=== PATIENT | female | born 1985 ===

== ENCOUNTER 2018-01-21 06:52 | Inpatient (IN) | payer BC ==
[2018-01-21] MEDS ORDERED: Lidocaine 1% 50 ML MDV INJECT PRN (07:59)
[2018-01-21] MEDS ORDERED: Nalbuphine 20 MG/ML 1 ML Syringe IVPUSH PRN (07:59)
[2018-01-21] MEDS ORDERED: Sodium Chloride 0.9% 10 ML Syringe FLUSH PRN (07:59)
[2018-01-21] MEDS ORDERED: Oxytocin/Lactated Ringers 10 UNIT/1,000 ML BAG IV SCH ×2 (08:00)
[2018-01-21] MEDS: Lactated Ringers 1,000 ML IV SCH ×3 (08:18→19:21)
--- NOTE | 2018-01-21 09:05 | PCM.LDHP ---
L&D History of Present Illness - General Date of Service: 01/21/18 Admit Problem/Dx: Patient Status Order with Admit Dx/Problem 01/21/18 07:59 Patient Status [ADT] Routine Admission Diagnosis/Problem Admission Diagnosis/Problem 01/21/18 08:50 39-4/7 week intrauterine , elective induction of labor Source of Information: Patient History Limitations: Reports: No Limitations - History of Present Illness Introduction:: History of present illness: Deb Is a 32-year-old 3 para 2001 female who is admitted for elective induction of labor. REJI is 01/24/2018. Patient's cervix is time is 2+ centimeters, 80% effaced, -2 station, posterior. Induction of labor as been discussed with patient including procedure, risks, benefits, alternatives of care. She wishes to proceed. [employer] history 3 para 2001. REJI 01/24/2018 based upon a certain last menstrual start and 04/19/2017 supported by 2 ultrasounds done on 06/24/2017 at . Patient had menarche at age, cycles every 35 days. No control at conception. Previous deliveries include the followin. Male infant born 05/11/2013 at 40 weeks gestational age of 24 hours labor. 8 lbs. 10 oz. male infant delivered via vacuum extraction delivery. Child's name is Nahun 2. Male 11/07/2014 at 40-2/7 weeks gestational age after 12 hours labor. 8 lbs. 14 oz. delivered spontaneously. Child's name is Waylon Peter course was relatively unremarkable. Her 1 hour GTT was elevated but 3 or GTT was normal. She plans to breast-feed. She declined genetic testing. She desires epidural in labor. Her [place] depression screening score on 09/19/2017 was 2. Group B strep screen is negative. Chest history of preeclampsia with her first . She also has a history of gestational diabetes. She is Rh- and received RhoGAM second trimester. She had her T dap on 11/14/2017. Patient is seen for first visit on 06/24/2017 at 9-3/7 weeks. She was seen on a regular basis. Weight gain was from 162.2 pounds 203 pounds for a 41 pound weight gain. Vital signs stable throughout the course. Fundal height growth. laboratory testing shows blood to be A- with negative screen. Initial first hemoglobin is 14.1 and platelets 209,000. Her showed ASCUS changes but negative age high-risk HPV assay. An RPR assays were immune and nonreactive. Hepatitis B and HIV assays were negative. Chlamydia and gonorrhea tests were negative. Second trimester labs showed hemoglobin 12.0 g or deciliter and platelets of 170,000 screening test was 155 for throughout GTT was normal with fasting blood level of 81. Her 1 hour glucose was 183, 2 hours 155, 3 hour glucose was 82. Allergies none Medications: 1. vitamins 1 daily 2. Vitamin D3 3000 units daily 3. Iron the form of ferrous sulfate 325 mg per day 3. Vitamin C Past medical history: 1. Vaginal delivery 2 2. History of gestational diabetes 3. Anxiety 4. History of ASCUS changes on Pap with negative high risk HPV Past surgical history: 1. Tonsillectomy Family history mother is alive and well. One sister and 1 brother alive and well. Father is alive but has hypertension and adult-onset diabetes along with hypercholesterolemia. Paternal grandfather secondary to an MA at age 72. Paternal grandmother is secondary to an MA which occurred during the surgical procedure but also had adult onset diabetes and hypertension. Maternal grandmother is secondary to colon cancer but also had adult- onset diabetes. Maternal grandfather is alive and healthy. No anesthesia, bleeding, blood clotting or problems noted. Social history: Patient is . is Ken Veronica. She is not using any significant loss of alcohol, drugs or tobacco. 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 Review of systems: In general patient has no concerns. She is feeling good activity and no contractions. She denies any bleeding or loss of vaginal fluid Skin: Negative Cardiovascular: No chest pain or exercise intolerance. Lungs: No shortness of breath or infectious symptoms Breasts: Changes associated with only. Patient does plan to breast- feed. GI: Negative : Essentially negative. Specifically no contractions of significance. Extremities/musculoskeletal: Occasional edema noted. Neurological: Negative Physical exam: In general patient is well-developed, well-nourished, pleasant feels stated age in no acute distress. She is alert 903 and appears to be good historian. On last evaluation clinic patient's weight was 203 with her pregravid weight 162.2 pounds. Her blood pressure was 118/74. heart rate is 147. Her pregravid weight was 162.2. Height is 5 feet 6 inches. Pregravid body mass index was 25. Skin is warm dry without lesions. HEENT, neck and back within normal notes Lungs are clear with good breath sounds in all lung chen. Cardiovascular exam shows regular and rhythm without murmurs. Breast exam is deferred. Abdomen is protuberant with last fundal height clinic at 38 cm, baby in vertex presentation by the pulmonary. Extremities and neurological Exam within normal limits. - Related Data Allergies/Adverse Reactions: Allergies Allergy/AdvReac Type Severity Reaction Status Date / Time No Known Allergies Allergy Verified 11/06/14 14:45 Home Medications: Home Meds Vit with Ca/FA/Iron [ Plus Iron] 1 each PO DAILY tablet [Rx] H&P Review of Systems - Review of Systems: Review Of Systems: See Below L&D Exam - Exam Exam: See Below - Vital Signs Vital Signs: Last Vital Signs Temp Pulse 112 H 01/21/18 08:00 Resp BP Pulse Ox Weight: 91.626 kg - Patient Data Lab Results Last 24 hrs: Laboratory Results - last 24 hr 01/21/18 Range/Units 08:14 WBC 9.99 (3.98-10.04) K/mm3 RBC 4.08 (3.98-5.22) M/mm3 Hgb 12.9 (11.2-15.7) gm/L Hct 37.2 (34.1-44.9) % MCV 91.2 (79.4-94.8) fl MCH 31.6 (25.6-32.2) pg MCHC 34.7 (32.2-35.5) g/dl RDW Std Deviation 46.1 (36.4-46.3) fL Plt Count 159 L (182-369) K/mm3 MPV 8.5 L (9.4-12.3) fl Result Diagrams: 01/21/18 08:14 Problem List Initiated/Reviewed/Updated: Yes Orders Last 24hrs: Active Orders 24 hr Category Date Time Status Patient Status [ADT] Routine ADT 01/21/18 07:59 Active Activity as Tolerated [RC] PFP Care 01/21/18 07:59 Active Communication Order [RC] ASDIRECTED Care 01/21/18 07:59 Active Notify Provider [RC] PFP Care 01/21/18 07:59 Active Notify Provider [RC] PRN Care 01/21/18 07:59 Active Peripheral IV Care [RC] Q2HR Care 01/21/18 08:00 Active Vital Signs [RC] PER UNIT ROUTINE Care 01/21/18 07:59 Active Regular Diet [DIET] Diet 01/21/18 Breakfast Active Lactated Ringers [Ringers, Lactated] 1,000 ml Med 01/21/18 08:00 Active IV ASDIRECTED Lidocaine 1% [Xylocaine 1%] Med 01/21/18 07:59 Active 50 ml INJECT ASDIRECTED PRN Nalbuphine [Nubain] Med 01/21/18 07:59 Active 10 mg IVPUSH Q2H PRN Oxytocin/Lactated Ringers [Pitocin in LR 10 Units/1,000 Med 01/21/18 08:00 Active ML] 10 unit in 1,000 ml IV .CONTINUOUS Oxytocin/Lactated Ringers [Pitocin in LR 10 Units/1,000 Med 01/21/18 08:00 Active ML] 10 unit in 1,000 ml IV TITRATE Sodium Chloride 0.9% [Saline Flush] Med 01/21/18 07:59 Active 10 ml FLUSH ASDIRECTED PRN Electronic Heart Tones Ext w TOCO [WOMSER] Oth 01/21/18 07:59 Ordered Routine Electronic Heart Tones Internal [WOMSER] Per Unit Oth 01/21/18 07:59 Ordered Routine Peripheral IV Insertion Adult [OM.PC] Routine Oth 01/21/18 07:59 Ordered Resuscitation Status Routine Resus Stat 01/21/18 07:59 Ordered Medication Orders Lactated Ringer's (Ringers, Lactated) 1,000 mls @ 100 mls/hr IV ASDIRECTED KARLA Last Admin: 01/21/18 08:18 Dose: 100 mls/hr Oxytocin/Lactated Ringer's (Pitocin In Lr 10 Units/1,000 Ml) 10 unit in 1,000 mls @ 12 mls/hr IV TITRATE KARLA; Protocol Last Admin: 01/21/18 08:19 Dose: 2 munits/min, 12 mls/hr Oxytocin/Lactated Ringer's (Pitocin In Lr 10 Units/1,000 Ml) 10 unit in 1,000 mls @ 500 mls/hr IV .CONTINUOUS KARLA Lidocaine HCl (Xylocaine 1%) 50 ml INJECT ASDIRECTED PRN PRN Reason: Breakthrough Pain Nalbuphine HCl (Nubain) 10 mg IVPUSH Q2H PRN PRN Reason: pain Sodium Chloride (Saline Flush) 10 ml FLUSH ASDIRECTED PRN PRN Reason: Keep Vein Open Assessment/Plan Comment:: 1. 39-4/7 week intrauterine , elective induction of labor 2.Group B strep screen negative 3. Patient plans to do an epidural for labor analgesia 4. Patient plans to breast-feed 5. Rubella immune. 6. Negativepatient did receive RhoGAM during her course. Plan: 1. Elective induction of labor using Pitocin initially with artificial rupture membranes augmentation planned. 2. Epidural when necessary for analgesia 3. Routine care.
[2018-01-21] MEDS ORDERED: diphenhydrAMINE 50 MG/ML SDV IVPUSH PRN (09:28)
[2018-01-21] MEDS ORDERED: fentaNYL 100 MCG/2 ML SDV EPIDUR PRN (09:28)
[2018-01-21] MEDS ORDERED: ePHEDrine 50 MG/ML SDV IVPUSH PRN (09:28)
[2018-01-21] MEDS ORDERED: Bupivacaine/fentaNYL/NS 100 ML Bag EPIDUR SCH (09:30)
--- NOTE | 2018-01-21 09:32 | PCM.PREANE ---
Preanesthetic Assessment - Procedure Proposed Procedure: anaid - Anesthesia/Transfusion/Family Hx Anesthesia History: Prior Anesthesia Without Reaction Family History of Anesthesia Reaction: No Transfusion History: No Prior Transfusion(s) - Review of Systems General: No Symptoms Pulmonary: No Symptoms Cardiovascular: No Symptoms Gastrointestinal: No Symptoms Neurological: No Symptoms Other: Reports: None - Physical Assessment Pulse: 112 Vital Signs: Last Vital Signs Temp Pulse 112 H 01/21/18 08:00 Resp BP Pulse Ox Height: 5 ft 6 in Weight: 91.626 kg ASA Class: 2 Mental Status: Alert & Oriented x3 Airway Class: Mallampati = 1 Dentition: Reports: Normal Dentition Thyro-Mental Finger Breadths: 3 Mouth Opening Finger Breadths: 3 ROM/Head Extension: Full Lungs: Clear to Auscultation, Normal Respiratory Effort Cardiovascular: Regular Rate, Regular Rhythm - Lab Values: Laboratory Last Values WBC 9.99 K/mm3 (3.98-10.04) 01/21/18 08:14 RBC 4.08 M/mm3 (3.98-5.22) 01/21/18 08:14 Hgb 12.9 gm/L (11.2-15.7) 01/21/18 08:14 Hct 37.2 % (34.1-44.9) 01/21/18 08:14 MCV 91.2 fl (79.4-94.8) 01/21/18 08:14 MCH 31.6 pg (25.6-32.2) 01/21/18 08:14 MCHC 34.7 g/dl (32.2-35.5) 01/21/18 08:14 RDW Std Deviation 46.1 fL (36.4-46.3) 01/21/18 08:14 Plt Count 159 K/mm3 (182-369) L 01/21/18 08:14 MPV 8.5 fl (9.4-12.3) L 01/21/18 08:14 - Allergies Allergies/Adverse Reactions: Allergies Allergy/AdvReac Type Severity Reaction Status Date / Time No Known Allergies Allergy Verified 11/06/14 14:45 - Blood Blood Available: No - Acknowledgements Anesthesia Type Planned: Epidural Pt an Appropriate Candidate for the Planned Anesthesia: Yes Alternatives and Risks of Anesthesia Discussed w Pt/Guardian: Yes Pt/Guardian Understands and Agrees with Anesthesia Plan: Yes PreAnesthesia Questionnaire HEENT History: Reports: None Cardiovascular History: Reports: None Respiratory History: Reports: None Gastrointestinal History: Reports: None : 3 (39 +weeks) Para: 2 Musculoskeletal History: Reports: None Psychiatric History: Reports: None Endocrine/Metabolic History: Reports: None Oncologic (Cancer) History: Reports: None - Past Surgical History HEENT Surgical History: Reports: Adenoidectomy, Tonsillectomy - SUBSTANCE USE Smoking Status *Q: Never Smoker Tobacco Use Within Last Twelve Months: No Second Hand Smoke Exposure: No Days Per Week of Alcohol Use: 0 Recreational Drug Use History: No - HOME MEDS Home Medications: Home Meds Vit with Ca/FA/Iron [ Plus Iron] 1 each PO DAILY tablet [Rx] - CURRENT (IN HOUSE) MEDS Current Meds: Current Medications Lactated Ringer's (Ringers, Lactated) 1,000 mls @ 100 mls/hr IV ASDIRECTED KARLA Last Admin: 01/21/18 08:18 Dose: 100 mls/hr Oxytocin/Lactated Ringer's (Pitocin In Lr 10 Units/1,000 Ml) 10 unit in 1,000 mls @ 12 mls/hr IV TITRATE KARLA; Protocol Last Titration: 01/21/18 09:05 Dose: 4 munits/min, 24 mls/hr Oxytocin/Lactated Ringer's (Pitocin In Lr 10 Units/1,000 Ml) 10 unit in 1,000 mls @ 500 mls/hr IV .CONTINUOUS KARLA Lidocaine HCl (Xylocaine 1%) 50 ml INJECT ASDIRECTED PRN PRN Reason: Breakthrough Pain Nalbuphine HCl (Nubain) 10 mg IVPUSH Q2H PRN PRN Reason: pain Sodium Chloride (Saline Flush) 10 ml FLUSH ASDIRECTED PRN PRN Reason: Keep Vein Open
--- NOTE | 2018-01-21 18:49 | PCM.SN ---
- Free Text/Narrative Note: Deb is a 32-year-old 3 now para 3003 white female who is admitted for elective induction of labor at 39-4/7 weeks gestational age. She underwent Pitocin induction with artificial rupture membranes augmentation starting on the a.m. of 01/21/2018. She progressed steadily. She had an epidural for labor analgesia. She became complete at approximately 1800 hrs. and pushed with approximatel 5 contractions and delivered a viable, [place], female with Apgars of 8 and 9, a length of 20.5 inches, a weight of 3650 g (8 pounds 0.7 ounces) in an occiput anterior position. The baby is delivered at 1822 hrs. Baby was placed on mom's abdomen. The cord was clamped 2 and then was cut by the baby's father Ken. Cord blood was obtained. Patient had a second-degree laceration which was repaired using 3-0 Monocryl suture in a routine fashion using epidural as anesthetic. Pitocin was administered per IV immediately after the delivery of the baby. Patient had 2 short bursts of bleeding each about 100 mL. Uterus massage helped reduce the bleeding by increase in uterine tone. The placenta delivered spontaneously at 1830 hrs., intact appearing complete. It was discarded per patient desire. Estimated blood loss 200 mL. Condition: Good. Patient plans to breast-feed.
[2018-01-21] MEDS ORDERED: Methylergonovine 0.2 MG/1 ML Amp ONE ×2 (19:00→19:05)
[2018-01-21] MEDS ORDERED: Methylergonovine 0.2 MG/1 ML Amp IM ONE (19:01)
[2018-01-21] MEDS ORDERED: Propofol 200 MG/20 ML SDV ONE (19:26)
[2018-01-21] MEDS ORDERED: Ondansetron 4 MG/2 ML SDV ONE (19:26)
[2018-01-21] MEDS ORDERED: Midazolam 1 MG/ML 2 ML SDV ONE ×2 (19:26→20:25)
[2018-01-21] MEDS ORDERED: Lidocaine 1% 4 ML ONE (19:26)
[2018-01-21] MEDS ORDERED: fentaNYL 250 MCG/5 ML SDV ONE (19:27)
[2018-01-21] MEDS ORDERED: Succinylcholine/Normal Saline 100 MG/5 ML Syringe ONE (19:27)
[2018-01-21] MEDS ORDERED: Ketamine 500 mg/10 ML MDV ONE (19:34)
[2018-01-21] MEDS ORDERED: ceFAZolin 1 GM Vial ONE (19:40)
[2018-01-21] MEDS ORDERED: Ondansetron 4 MG/2 ML SDV IVPUSH PRN (19:49)
[2018-01-21] MEDS ORDERED: Meperidine PF 50 MG/ML Syringe IVPUSH PRN (19:49)
[2018-01-21] MEDS ORDERED: fentaNYL 100 MCG/2 ML SDV IVPUSH PRN (19:49)
[2018-01-21] MEDS ORDERED: Misoprostol 200 MCG Tab ONE (19:51)
[2018-01-21] MEDS ORDERED: Benzocaine/Menthol 20%-0.5% Spray 56 GM Canister TOP PRN (19:57)
[2018-01-21] MEDS ORDERED: Witch Hazel Medicated Pads 100/Jar TOP PRN (19:57)
[2018-01-21] MEDS ORDERED: Docusate Sodium 100 MG Cap PO PRN (19:57)
[2018-01-21] MEDS ORDERED: Acetaminophen 325 MG Tab PO PRN (19:57)
[2018-01-21] MEDS ORDERED: Lanolin 100% Cream 7 GM Tube TOP PRN (19:57)
[2018-01-21] MEDS ORDERED: Ibuprofen 600 MG Tab PO PRN (19:57)
[2018-01-21] MEDS ORDERED: Sodium Chloride 0.9% 1,000 ML ONE (20:18)
--- NOTE | 2018-01-21 20:49 | PCM.POSTAN ---
POST ANESTHESIA ASSESSMENT - MENTAL STATUS Mental Status: Alert, Oriented - VITAL SIGNS Pulse Rate: 111 SaO2: 100 Resp Rate: 17 Blood Pressure: 130/68 Temperature: 100.9 F - RESPIRATORY Respiratory Status: Respiratory Rate WNL, Airway Patent, O2 Saturation Stable, Supplemental Oxygen - CARDIOVASCULAR CV Status: Pulse Rate WNL, Blood Pressure Stable - GASTROINTESTINAL GI Status: No Symptoms - PAIN Pain Score: 0 - POST OP HYDRATION Hydration Status: Adequate & Stable
--- NOTE | 2018-01-21 21:00 | PCM.OPNOTE ---
- General Post-Op/Procedure Note Date of Surgery/Procedure: 01/21/18 Operative Procedure(s): 1. Exam under anesthesia. 2. Suction curettage of the endometrial cavity. 3. Placement of Bakri balloon Findings: Uterus was found to be firm. There was a small segment of placenta retained within the endometrial cavity. The cervix appeared to be intact without any evidence of bleeding. Pre Op Diagnosis: 1. hemorrhage. 2. Retained products of conception/ placenta Post-Op Diagnosis: Same Anesthesia Technique: Epidural, Moderate Sedation Primary Surgeon: Milo aBrboza Secondary Surgeon: Jeff Montalvo Anesthesia Provider: Alfredo Tomlinson Reason Administrative Intern Was Necessary: Retraction, assistance, patient safety, quality of care Role of Administrative Intern: Assistance, retraction Pathology: Endometrial curettings consistent with retained placenta Drain/Tube Comments:: Bakri balloon placed in the endometrial cavity Complications: None Condition: Good Free Text/Narrative:: Surgery duration: 47 minutes Preoperative estimated blood loss: 2100 mL Intraoperative blood loss: 800 mL Medications administered in addition to anesthesia include: 1. Cytotec 800 g per rectum 2. IV Pitocin per IV 3. Ancef 2 g IV intraoperatively 4. IM Methergine 0.2 mg given just before patient's transfer to the OR IV fluids: 1. 2100 mL crystalloid 2. First unit of packed red blood cells was initiated during the surgery. Procedure: The patient is taken to the operating room placed in supine position on the operating table. She was given additional sedation in addition to her epidural which was still moderately effective. She is placed in the dorsal lithotomy position and vagina and perineum were prepped. A weighted speculum was placed in vagina taking care to avoid interrupting her second-degree laceration suturing. The cervix was evaluated in full circumference and found to be intact and without any evidence of lacerations or hemorrhage. A large suction curet was then introduced and the endometrial cavity and a small amount of tissue was removed with findings consistent with retained placenta. A large loop curet was then introduced and no further tissue was removed. There was still some moderate amount of bleeding present despite the uterus being reasonably firm. A decision was made to place a Bakri balloon. Normal saline was used as a distending medium. The balloon was placed with the tip at the fundus of the uterus. It was filled to 420 mL.. The end of the Bakri tubing was attached to a closed collection system. With this bleeding essentially subsided. At this point the retractor was removed the laceration sutures weren' t noted to be intact. Patient's returned to supine position and was transferred to the recovery room. Condition-satisfactory
[2018-01-21] MEDS ORDERED: Bupivacaine 0.25% 10 ML SDV ONE (22:00)
--- NOTE | 2018-01-21 22:01 | PCM.SN ---
- Free Text/Narrative Note: Postoperative/ note: I was called at approximately 2130 hrs. for mild continued vaginal bleeding. Patient had approximately a 10 inch size bloodstain on Chux. She has received 2 units of packed blood cells. Platelet count is 139 and a hemoglobin is 11.7. Patient is feeling well. Bakri balloon is in place and appears to be functioning. There is approximately 40 mL of blood that has come out through the balloon tube. PT and PTT along with an INR have been ordered. Patient has received some fentanyl for pain. Appears to be resting reasonably well. Assessment: 1. uterine bleeding with retained placenta now status post suction D& C and placement of a Bakri balloon. Still noted to have mild vaginal bleeding. Patient is suspected of having up to 2100 cc of blood loss prior to her D&C and back 3 balloon placement. 2. She has received 2 units of packed red blood cells. 3. Clinically patient is stable. She is alert and oriented. Plan: 1. Will type and transfuse 2 more units of packed red blood cells 2. Considering the significant blood loss, packed red blood cell replacement and IV fluid replacement we'll proceed with 4 units of fresh frozen plasma and will order 1 unit of platelets from [place]. 3. Will continue to assess her clinical status and blood loss. 4. Coagulation labs pending
[2018-01-22] MEDS ORDERED: Acetaminophen 325 MG Tab PO PRN (00:49)
[2018-01-22] MEDS ORDERED: Witch Hazel Medicated Pads 100/Jar TOP PRN (00:49)
[2018-01-22] MEDS ORDERED: Docusate Sodium 100 MG Cap PO PRN (00:49)
[2018-01-22] MEDS ORDERED: Benzocaine/Menthol 20%-0.5% Spray 56 GM Canister TOP PRN (00:49)
[2018-01-22] MEDS ORDERED: Lanolin 100% Cream 7 GM Tube TOP PRN (00:49)
[2018-01-22] MEDS: Acetaminophen/oxyCODONE 325-5 MG Tab PO PRN ×4 (01:15→13:12)
[2018-01-22] MEDS: ceFAZolin 1 GM in Premix Bag 1 BAG IV SCH ×3 (02:17→14:14)
[2018-01-22] MEDS: Ibuprofen 600 MG Tab PO PRN ×3 (06:06→21:34)
--- NOTE | 2018-01-22 08:17 | PCM.SN ---
- Free Text/Narrative Note: [place] initiatives been stable. Her vital signs stable. Her latest pulse is 85. Her blood pressures within normal limits. Urine output has been within normal limits. She is having some cramps but generally feels pretty well. When she takes Percocet and ibuprofen this controls the pain reasonably well. She has not been up. She has sequential compression devices in place. Bakri balloon output has been minimal. She has had some bleeding vaginally otherwise. This is been manageable. Antibiotics continue with Ancef 1 g every 6 hours to be administered until the balloon is removed. In general patient is well-developed well-nourished pleasant female who is alert and oriented 3 and appears to be recently comfortable. Lungs are clear with good breath sounds in all lung chen. Cardiovascular exam shows regular and rhythm without murmurs. Lungs are clear with good breath sounds in all lung chen. Uterus is tender with palpation and is at 2 cm above the umbilicus which is where it was after placement of the balloon last evening. Abdomen otherwise is unremarkable. Extremities show minimal edema. Hemoglobin is 9.1 with hematocrit 26.8. White count is 8.51 and platelets are 107. These are considered to the appropriate for the patient's clinical course and transfusion history. Assessment: 1. Post /post operative day #1. Stable. No evidence of further hemorrhage.Bakri balloon in place. Some clot noted in the balloon tubing. Cannot entirely rule out obstruction. 2. Laboratory testing within normal limits considering clinical course. Plan: 1. We'll continue with the balloon in place until this afternoon. At approximately 1500 hrs. will begin deflating the balloon by 100 mL every 30 minutes. Monitor bleeding closely. 2. Continue antibiotics until the balloon is removed 3. Ibuprofen and Percocet for pain control
--- NOTE | 2018-01-22 08:24 | PCM48HPAN ---
Post Anesthesia Note - EVALUATION WITHIN 48HRS OF ANESTHETIC Vital Signs in Normal Range: Yes Patient Participated in Evaluation: Yes Airway Patent: Yes Cardiovascular Function Stable: Yes Hydration Status Stable: Yes Pain Control Satisfactory: Yes Nausea and Vomiting Control Satisfactory: Yes Pulse Rate: 90 Resp Rate: 18 Temperature: 98.4 F Blood Pressure: 110/67 - COMMENTS/OBSERVATIONS Free Text/Narrative:: Patient on her day 1. Patient has stated understanding about possible backaches following epidural anesthesia. Patient denies any headache, nausea, lightheadedness or backache at this time. No motor sensory or deficits noted on lower extremities check. Patient has not been out of bed yet and still has a balloon inflated in her uterus, Moreno catheter to gravity.
[2018-01-22] MEDS ORDERED: Dextrose 5%-Lactated Ringers 1,000 ML IV SCH (13:00)
[2018-01-22] MEDS ORDERED: Sodium Chloride 0.9% 100 ML ONE (13:26)
[2018-01-22] MEDS ORDERED: Misoprostol 200 MCG Tab RECTAL ONE (13:30)
[2018-01-22] MEDS ORDERED: Nalbuphine 20 MG/ML 1 ML Syringe IVPUSH ONE (14:38)
--- NOTE | 2018-01-22 15:04 | PCM.SN ---
- Free Text/Narrative Note: The patient's vital signs are stable. Patient has had approximately 700-800 mL of blood out during the course of her date today. This determined by way 18 chux and what was put out by her Bakri balloon catheter. She is stable but having significant Monocryl pain. Discussion is held with patient as to potential differential diagnosis of the of her bleeding including the possibility of placenta accreta stability of the growth the placenta through the wall of the uterus and into other organ systems. Review of the ultrasound from her 20 week evaluation showed no evidence of central abnormality. A she has received her unit of platelets as her last platelet count was 107. This is in anticipation of the plating of the balloon. Have considered imaging with MRI with contrast to evaluate status of the uterine wall and whether any placenta accreta is present after discussion with our radiologist. The benefit of this is not certain. Especially with balloon in place. At this time have decided to proceed with deflating of the balloon. Assessment: 1. hemorrhage now with manageable blood loss but with balloon in the uterus at this time. 2. Platelet count 107 prior to transfusion 1 unit of platelets. 3. Significant cramping noted. Plan: 1. Have given the patient Cytotec 800 g to help contract the uterus 2. Have instructed nursing staff to deflate the balloon at 100 mL every half hour until empty. 3. Will monitor bleeding very closely. 4. Of bleeding starts maybe consider trans-examic acid therapy. May consider more strongly MRI with contrast imaging. New 4. Have discussed the possible option of hysterectomy via total abdominal route along with bilateral salpingectomy. Its risks, benefits, especially in light of the and altered anatomy due to . She appears to understand. She is in agreement with the above plan.
[2018-01-22] MEDS: Misoprostol 100 MCG Tab PO SCH ×2 (17:38→21:35)
[2018-01-23] MEDS: Ibuprofen 600 MG Tab PO PRN ×3 (01:39→21:17)
[2018-01-23] MEDS: Misoprostol 100 MCG Tab PO SCH (01:39)
[2018-01-23] MEDS ORDERED: Sodium Chloride 0.9% 1,000 ML IV SCH (06:45)
--- NOTE | 2018-01-23 08:34 | PCM.SN ---
- Free Text/Narrative Note: Deb is feeling good today. She feels much improved over yesterday and that she is having a lot less cramping. The Bakri balloon was removed yesterday afternoon and patient has had no more bleeding than she was having before. However, the amount of bleeding that she is having is still above what is usually anticipated in the period. She has minimal cramping. Urine output has been good. Vital signs are stable. Patient is afebrile. In general patient is in good spirits. She's been up and around recently well despite her low hemoglobin. Lungs are clear with good breath sounds in all lung chen. Cardiovascular exam shows regular and rhythm without murmurs. Abdomen is flat, soft, uterus is at umbilicus and to the left side of the abdomen. It is minimally tender. It is firm. Extremities show no significant edema. CBC today shows white count 8.25. Hemoglobin is 6.4 which is down from 7.1 last evening. Hematocrit is 19.4 and platelets are 133,000. Assessment: 1. /postoperative day 2 Status post delivery, hemorrhage, retained placenta, D&C with placement of Bakri balloon. Now with continued vaginal flow which is above average but with normal clinical findings otherwise. I believe that part of her decrease in hemoglobin over the last 24 hours has been due to the increased vaginal flow but also a component may be that she is still equilibrating from the massive blood loss she had after delivery. Final estimated was approximately 2900 mL. 2. Her CBC indices are reasonable considering the blood loss, fluids that she is received and the continued vaginal flow. Plan: 1. We'll approach the situation conservatively as would like to refrain from any surgical intervention is necessary. Patient has been forewarned that aggressive surgical intervention with total abdominal hysterectomy and bilateral salpingectomy may be indicated if bleeding persists or worsens. She is reasonably comfortable with this and reports that they have decided they were not having any more children even before this delivery. 2. Will transfuse last 2 units of packed red blood cells which have been crossmatched. 3. Check CBC after delivery 4. Will continue Cytotec 400 g by mouth every 6 hours for the next [address] Moss to cover today and Dr. Treadwell to cover tomorrow. 6. If patient continues to be clinically stable and is able to function well in care of her baby may consider discharge tomorrow. See the patient back on Saturday , 01/27/2018.
[2018-01-23] MEDS: Misoprostol 200 MCG Tab PO SCH ×3 (10:48→21:17)
[2018-01-24] MEDS: Misoprostol 200 MCG Tab PO SCH ×2 (03:27→11:50)
[2018-01-24 08:18] VITALS: BP 113/65
--- NOTE | 2018-01-24 10:17 | PCM.SN ---
- Free Text/Narrative Note: Patient doing excellent today. Feeling ready for discharge. Pain very minimal. Bleeding very minimal. Desires discharge. Discharge summary in detail will be dictated by Dr. Barboza
== END 2018-01-24 11:00 | disposition home or self-care (01) | DRG 541 ==
LOC: JD.OB 06:52 → UNDOADMOB 06:52 → JD.OB 18:22 → OBSVTOIN 18:22 → INTOOBSV 18:22 → JD.OB 18:23
PROVIDERS: ADMIT Obstetrics & Gynecology; ATTEND Obstetrics & Gynecology
PROC: 6A550ZT Pheresis of Cord Blood Stem Cells, Single (ICD-10-PCS; principal; 2018-01-21)
PROC: 10907ZC Drainage of Amniotic Fluid, Therapeutic from Products of Conception, Via Natural or Artificial Opening (ICD-10-PCS; principal; 2018-01-21)
PROC: 0KQM0ZZ Repair Perineum Muscle, Open Approach (ICD-10-PCS; principal; 2018-01-21)
PROC: 3E033VJ Introduction of Other Hormone into Peripheral Vein, Percutaneous Approach (ICD-10-PCS; principal; 2018-01-21)
PROC: 10E0XZZ Delivery of Products of Conception, External Approach (ICD-10-PCS; principal; 2018-01-21)
PROC: 0W3R7ZZ Control Bleeding in Genitourinary Tract, Via Natural or Artificial Opening (ICD-10-PCS; 2018-01-21)
PROC: 10D17ZZ Extraction of Products of Conception, Retained, Via Natural or Artificial Opening (ICD-10-PCS; 2018-01-21)
PROC: 30233N1 Transfusion of Nonautologous Red Blood Cells into Peripheral Vein, Percutaneous Approach (ICD-10-PCS; 2018-01-21)
PROC: 00HU33Z Insertion of Infusion Device into Spinal Canal, Percutaneous Approach (ICD-10-PCS; 2018-01-21)
PROC: 3E0R3BZ Introduction of Anesthetic Agent into Spinal Canal, Percutaneous Approach (ICD-10-PCS; 2018-01-21)
PROC: 30233K1 Transfusion of Nonautologous Frozen Plasma into Peripheral Vein, Percutaneous Approach (ICD-10-PCS; 2018-01-21)
PROC: 30233R1 Transfusion of Nonautologous Platelets into Peripheral Vein, Percutaneous Approach (ICD-10-PCS; 2018-01-22)
DX: O70.1 Second degree perineal laceration during delivery (principal); Z3A.39 39 weeks gestation of pregnancy; Z37.0 Single live birth; O72.2 Delayed and secondary postpartum hemorrhage
CPT/HCPCS: 00940; 36415; 36430; 51702; 59025; 59300; 59409; 85007; 85025; 85027; 85610; 86592; 86850; 86900; 86901; 86922; A9270-GY; J0330; J0690; J2001; J2210; J2250; J2300; J2405; J2590; J2704; J3010; J3490; J7030; J7040; J7042; J7120; P9016; P9017; P9034